=== PATIENT | female | born 1940 | race African-American/Black ===

== ENCOUNTER → 2017-03-10 | Outpatient (CLI) | payer MEDICARE ==
[~2017-03-10] MED LIST: ASPIR 8181 MG PO; ASPIRIN EC81 MG PO; CEFTAZIDIM1 GM/50 ML IV; CHRONULAC20 GM/30 M PO; COREG 12.5MG12.5 MG PO; COREG 3.125M3.125 MG PO; DAKIN'S SOLUTI500 ML TOP; ENSURE113 GM PO; GENTAMICIN80 MG/101 IV; IMDUR ER TAB 6060 MG PO; ISORDIL TAB 1010 MG PO; ISOSORBIDE MON120 MG PO; LIPITOR TAB 2020 MG PO; LORTAB 5-325 M1 EACH PO; MEROPENEM IV; NEPHRO; NEPHROCAPS SOFTG1 MG PO; NEURONTIN 300300 MG PO; NEXIUM40 MG PO; PHOSLO 667 MG667 MG PO; PROCRIT10000 UNIT INJ; PROTONIX40 MG PO; RENAGEL800 MG PO; SYNTHROID175 MCG PO; TRIPHROCAPS SOFT1 MG PO; TYLENOL 325MG325 MG PO; VANCOMYCIN HCL125 MG PO; ZANTAC150 MG PO; ZOFRAN4 MG PO
[2017-03-10 14:02] LABS: HEMOGLOBIN 8.2 gm/dl (12.3-15.3)
== END ==
LOC: OPSV 13:18
PROVIDERS: Internal Medicine Nephrology
DX: D63.1 Anemia in chronic kidney disease (principal)
CPT/HCPCS: 36415; 85014; 85018; J7050